=== PATIENT | male | born 1995 | race Caucasian/White ===

== ENCOUNTER 2016-10-04 03:27 | Emergency (ER) | payer MEDICARE, OTHER ==
[~2016-10-04] VITALS: Ht 175.3 cm; Wt 129.0 kg
[2016-10-04 03:32] VITALS: BP 168/90; PULSE 110; RESP 16; TEMP 97.9; O2SAT 96
--- NOTE | 2016-10-04 04:12 | PD ---
HPI Chief Complaint: ENT Complaint Time Seen by Provider: 04:11 Travel History International Travel<30 days: No Contact w/Intl Traveler<30days: No Traveled to known affect area: No History of Present Illness HPI 20-year-old male presents to the emergency department the care of his parents for evaluation of left ear pain with history of Asperger's. Symptoms aren't present for 2 days. Patient was diagnosed on Tuesday with left otitis media and started on Cipro otic drops and then seen again on Tuesday and prescribed doxycycline. Patient has taken ibuprofen and Tylenol without symptom relief. Patient reports pain at worst 8/10 in intensity and presently for over 10 in intensity. No known trauma. There is been no drainage or blood from the ear. Patient denies any sinus pressure drainage. No cough no vomiting. PFSH Past Medical History Narrative Medical Asperger's; no tobacco use; nursing notes reviewed Allergies-Medications (Allergen,Severity, Reaction): Coded Allergies: amoxicillin (Verified Allergy, Severe, Rash, 10/04/16) Narrative Medication doxycycline and Cipro otic drops Review of Systems Except as stated in HPI: all other systems reviewed are Neg General / Constitutional: No: Fever, Chills HENT: Positive: Congestion, Earache, No: Sore Throat Cardiovascular: No: Chest Pain or Discomfort Respiratory: No: Cough Gastrointestinal: No: Abdominal Pain Genitourinary: No: Flank Pain Skin: No Rash Neurologic: No: Weakness Psychiatric: No: Anxiety Hematologic/Lymphatic: No: Lymph Node Enlargement Physical Exam Narrative GENERAL: Well-developed well-nourished male in no acute distress no respiratory distress SKIN: Warm and dry. HEAD: Normocephalic. EYES: No scleral icterus. No injection or drainage. ENT: Mucous membranes moist airway is patent tympanic membrane redness no dullness to loss of landmarks left tympanic membrane visualized without perforation external auditory canal with erythema and edema and no foreign body except mild residual cerumen. NECK: Supple, trachea midline. No JVD or lymphadenopathy. CARDIOVASCULAR: Regular rate and rhythm without murmurs, gallops, or rubs. RESPIRATORY: Breath sounds equal bilaterally. No accessory muscle use. GASTROINTESTINAL: Abdomen soft, non-tender, nondistended. MUSCULOSKELETAL: No cyanosis, or edema. BACK: Nontender without obvious deformity. No CVA tenderness. Data Data Last Documented VS Vital Signs Date Time Temp Pulse Resp B/P (MAP) Pulse Ox O2 Delivery O2 Flow Rate FiO2 10/04/16 03:32 97.9 110 16 168/90 (116) 96 Orders Orders Acetamin-Hydrocod 325-5 Mg ([place] 5-325 (10/04/16 04:15) MDM Medical Decision Making Medical Screen Exam Complete: Yes Emergency Medical Condition: Yes Medical Record Reviewed: Yes Differential Diagnosis Otalgia tympanic membrane perforation otitis media otitis externa sinusitis Narrative Course Mother at bedside reports due to patient's Asperger's is intolerant of pain; is aware that patient's pain tolerance is diminished at this time. Patient given one-time dose of Lortab. Diagnosis Primary Impression: Otitis externa Qualified Codes: H60.502 - Unspecified acute noninfective otitis externa, left ear Additional Impression: Otalgia of left ear Referrals: Ear / Nose / Throat Specialist as needed On-call provider [facility] Physician call for appointment Patient Instructions: General Instructions, Narcotic given in the ED Additional Instructions: Continue current medications as presently prescribed Follow-up with your primary care provider and ENT as needed Continue to use as needed ibuprofen 800 mg as often as every 8 hours as needed for pain associated with inflammation for greater than 5/10 in intensity May use acetaminophen/Tylenol for minor pain or for fever 100.4F or greater May use [id number] Afrin nasal decongestant spray twice daily to the left nostril for up to 2-3 days avoid overuse to avoid rebound congestion Return to the emergency department for any concerns or change in condition Med/Other Pt SpecificInfo: Prescription(s) given Scripts Hydrocodone-Acetaminophen (Lortab) 5-325 Mg Tab 1 TAB PO Q6H Y for PAIN, #4 TAB 0 Refills Prov: Marleny Haro MD 10/04/16 Disposition: 01 DISCHARGE HOME Condition: Stable Marleny Haro MD Oct 04, 2016 04:12
[2016-10-04] MEDS ORDERED: ACETAMINOPHEN/HYDROcodone 325 MG/5 MG TAB PO ONE (04:15)
[2016-10-04] MEDS ORDERED: HYDR-3533 PO (04:19)
[2016-10-04] MEDS ORDERED: DOXY100C PO (04:29)
[2016-10-04] MEDS ORDERED: OFLO0.3D9 EACH EAR (04:29)
== END 2016-10-04 04:44 | disposition home or self-care (01) ==
LOC: PHED 03:27
DX: H60.502 Unspecified acute noninfective otitis externa, left ear (principal)
CPT/HCPCS: 99283